=== PATIENT | male | born 1960 | race Caucasian/White ===

== ENCOUNTER 2021-03-28 20:54 | Inpatient (IN) | payer MEDICARE, OTHER ==
[~2021-03-28] VITALS: Ht 182.9 cm; Wt 88.5 kg
[2021-03-28] MEDS ORDERED: PHENERGAN 25 MG25 M1 PO (22:55)
[2021-03-28] MEDS ORDERED: ZYPREXA2.5 MG PO (22:55)
[2021-03-28] MEDS ORDERED: FISH OIL 1,0001 EACH PO (22:56)
[2021-03-29 04:54] LABS: BUN/CREATININE RATIO 29 (0-10)
[2021-03-30 02:47] LABS: HEMOGLOBIN 13.1 gm/dl (14.0-17.5); RED BLOOD COUNT 4.32 M/UL (4.20-5.50); WHITE BLOOD COUNT 10.1 K/UL (4.5-11.0)
[2021-03-30 03:28] LABS: BUN/CREATININE RATIO 39 (0-10)
[2021-03-31 02:29] LABS: HEMOGLOBIN 13.4 gm/dl (14.0-17.5); RED BLOOD COUNT 4.48 M/UL (4.20-5.50)
[2021-03-31 02:33] LABS: WHITE BLOOD COUNT 14.1 K/UL (4.5-11.0)
[2021-03-31 02:58] LABS: BUN/CREATININE RATIO 40 (0-10)
[2021-04-01 02:45] LABS: HEMOGLOBIN 12.7 gm/dl (14.0-17.5); RED BLOOD COUNT 4.23 M/UL (4.20-5.50); WHITE BLOOD COUNT 13.8 K/UL (4.5-11.0)
[2021-04-01 03:05] LABS: BUN/CREATININE RATIO 37 (0-10)
--- NOTE | 2021-04-01 22:34 | NUR ---
[address] ROMERO DT O2 SAT 84% ON 100% BIPAP. ABG ORDERED. SEE MAR FOR ORDERS. 1904 DR ROMERO NOTIFIED OF PT AGITATION. UNABLE TO START PRECEDEX BACK DT HR IN THE 40S. PT O2 SAT 80%. ORDERS RECEIVED TO SET UP FOR INTUBATION. 1942 PT INTUBATED 8 @ 24. + COLOR CHANGE, BILATERAL BREATH SOUNDS. RIJ CVL PLACED EMERGENTLY BY DR ROMERO. OG PLACED BY RN. XRAY CALLED TO BEDSIDE FOR STAT PORTABLE. [address] ROMERO PT PRONED. SEE MAR FOR ORDERS. 1999 PT FAMILY UPDATED BY HEATHER.
--- NOTE | 2021-04-02 00:27 | NUR ---
PER PT REQUEST, [facility] SENT TO [facility].
[2021-04-02 05:46] LABS: HEMOGLOBIN 14.5 gm/dl (14.0-17.5)
[2021-04-02 05:52] LABS: RED BLOOD COUNT 4.98 M/UL (4.20-5.50); WHITE BLOOD COUNT 19.2 K/UL (4.5-11.0)
[2021-04-02 06:42] LABS: BUN/CREATININE RATIO 49 (0-10)
--- NOTE | 2021-04-02 15:22 | NUR ---
AT [address] PULLIAM ABOUT PATIENT TACHYCARDIA. STATED TO NOTIFIY HIM IN 30 MINUTES TO 1 HOUR IF TACHYCARDIA DID NOT IMPROVE FOR NEW ORDERS.
[2021-04-03 05:33] LABS: HEMOGLOBIN 14.3 gm/dl (14.0-17.5); RED BLOOD COUNT 4.68 M/UL (4.20-5.50)
[2021-04-03 05:34] LABS: WHITE BLOOD COUNT 13.5 K/UL (4.5-11.0)
[2021-04-03 05:46] LABS: BUN/CREATININE RATIO 48 (0-10)
[2021-04-03 16:44] LABS: BUN/CREATININE RATIO 46 (0-10)
--- NOTE | 2021-04-03 16:54 | NUR ---
Spoke with Dr. Rajan and notified that radiology reported a 20-30% left pneumothorax. Dr. Rajan came to bedside and adjusted vent settings to FIO2 50% and PEEP 10. Stated to order chest xray in AM.
--- NOTE | 2021-04-04 04:23 | NUR ---
PATIENT O2 SATURATION 88% PATIENT IS BREATHING OVER VENT, INCREASE IN FENTAYL FOR SEDATION
[2021-04-04 04:33] LABS: HEMOGLOBIN 13.7 gm/dl (14.0-17.5); RED BLOOD COUNT 4.47 M/UL (4.20-5.50); WHITE BLOOD COUNT 15.3 K/UL (4.5-11.0)
[2021-04-04 04:48] LABS: BUN/CREATININE RATIO 47 (0-10)
[2021-04-05 05:29] LABS: HEMOGLOBIN 13.5 gm/dl (14.0-17.5); RED BLOOD COUNT 4.34 M/UL (4.20-5.50); WHITE BLOOD COUNT 14.1 K/UL (4.5-11.0)
[2021-04-05 05:52] LABS: BUN/CREATININE RATIO 54 (0-10)
[2021-04-06 05:53] LABS: HEMOGLOBIN 12.2 gm/dl (14.0-17.5); RED BLOOD COUNT 4.04 M/UL (4.20-5.50); WHITE BLOOD COUNT 17.3 K/UL (4.5-11.0)
[2021-04-06 06:37] LABS: BUN/CREATININE RATIO 57 (0-10)
[2021-04-07 05:45] LABS: RED BLOOD COUNT 4.02 M/UL (4.20-5.50); WHITE BLOOD COUNT 18.1 K/UL (4.5-11.0)
[2021-04-07 06:09] LABS: BUN/CREATININE RATIO 70 (0-10)
[2021-04-08 05:22] LABS: BUN/CREATININE RATIO 62 (0-10); HEMOGLOBIN 11.9 gm/dl (14.0-17.5); RED BLOOD COUNT 3.91 M/UL (4.20-5.50); WHITE BLOOD COUNT 18.1 K/UL (4.5-11.0)
[2021-04-09 05:53] LABS: HEMOGLOBIN 11.2 gm/dl (14.0-17.5); RED BLOOD COUNT 3.68 M/UL (4.20-5.50); WHITE BLOOD COUNT 19.7 K/UL (4.5-11.0)
[2021-04-09 06:05] LABS: BUN/CREATININE RATIO 69 (0-10)
[2021-04-10 07:00] LABS: BUN/CREATININE RATIO 57 (0-10)
[2021-04-10 13:34] LABS: HEMOGLOBIN 11.2 gm/dl (14.0-17.5); RED BLOOD COUNT 3.69 M/UL (4.20-5.50); WHITE BLOOD COUNT 17.9 K/UL (4.5-11.0)
[2021-04-11 07:30] LABS: HEMOGLOBIN 9.6 gm/dl (14.0-17.5); WHITE BLOOD COUNT 14.4 K/UL (4.5-11.0)
[2021-04-11 07:32] LABS: RED BLOOD COUNT 3.26 M/UL (4.20-5.50)
[2021-04-11 10:29] LABS: BUN/CREATININE RATIO 52 (0-10)
[2021-04-12 04:50] LABS: HEMOGLOBIN 10.5 gm/dl (14.0-17.5); RED BLOOD COUNT 3.45 M/UL (4.20-5.50); WHITE BLOOD COUNT 16.9 K/UL (4.5-11.0)
[2021-04-12 05:05] LABS: BUN/CREATININE RATIO 51 (0-10)
[2021-04-12 17:08] LABS: HEPARIN INDUCED PLATELET AB 0.172 OD (0.000-0.400)
[2021-04-13 05:35] LABS: HEMOGLOBIN 11.3 gm/dl (14.0-17.5); RED BLOOD COUNT 3.74 M/UL (4.20-5.50); WHITE BLOOD COUNT 16.1 K/UL (4.5-11.0)
[2021-04-13 05:58] LABS: BUN/CREATININE RATIO 46 (0-10)
[2021-04-14 05:25] LABS: HEMOGLOBIN 8.7 gm/dl (14.0-17.5); RED BLOOD COUNT 2.92 M/UL (4.20-5.50); WHITE BLOOD COUNT 10.3 K/UL (4.5-11.0)
[2021-04-14 05:55] LABS: BUN/CREATININE RATIO 46 (0-10)
[2021-04-14 11:15] LABS: ACINETOBACTER BAUMANNII Not Detected (Negative); CANDIDA KRUSEI Not Detected (Negative); CANDIDA TROPICALIS Not Detected (Negative); ENTEROCOCCUS Not Detected (Negative); ESCHERICHIA COLI Not Detected (Negative); HAEMOPHILUS INFLUENZAE Not Detected (Negative); KLEBSIELLA OXYTOCA Not Detected (Negative); KLEBSIELLA PNEUMONIAE Not Detected (Negative); KPC-CARBAPENEM-RESISTANCE GENE Not Detected (Negative); PROTEUS Not Detected (Negative); PSEUDOMONAS AERUGINOSA Not Detected (Negative); SERRATIA MARCESANS Not Detected (Negative); STAPHYLOCOCCUS Not Detected (Negative); STAPHYLOCOCCUS AUREUS Not Detected (Negative); STREP AGALACTIAE (GROUP B) Not Detected (Negative); STREP PYOGENES (GROUP A) Not Detected (Negative); STREPTOCOCCUS Not Detected (Negative); mecA (METHICILLIN RESIST GENE Not Detected (Negative); vanA/B (VANCOMYCIN RESIST GENE Not Detected (Negative)
[2021-04-14 13:16] LABS: CANDIDA ALBICANS DETECTED (Negative)
[2021-04-14 18:55] LABS: HEMOGLOBIN 10.4 gm/dl (14.0-17.5); WHITE BLOOD COUNT 12.7 K/UL (4.5-11.0)
[2021-04-14 18:57] LABS: RED BLOOD COUNT 3.45 M/UL (4.20-5.50)
[2021-04-15 08:18] LABS: HEMOGLOBIN 9.7 gm/dl (14.0-17.5); RED BLOOD COUNT 3.3 M/UL (4.20-5.50); WHITE BLOOD COUNT 13.4 K/UL (4.5-11.0)
[2021-04-15 08:44] LABS: BUN/CREATININE RATIO 50 (0-10)
[2021-04-16 05:06] LABS: HEMOGLOBIN 9.8 gm/dl (14.0-17.5); RED BLOOD COUNT 3.22 M/UL (4.20-5.50); WHITE BLOOD COUNT 13.5 K/UL (4.5-11.0)
[2021-04-16 05:25] LABS: BUN/CREATININE RATIO 54 (0-10)
[2021-04-17 05:13] LABS: HEMOGLOBIN 10.1 gm/dl (14.0-17.5); RED BLOOD COUNT 3.35 M/UL (4.20-5.50)
[2021-04-17 05:34] LABS: BUN/CREATININE RATIO 53 (0-10)
[2021-04-18 04:52] LABS: HEMOGLOBIN 10.3 gm/dl (14.0-17.5); RED BLOOD COUNT 3.44 M/UL (4.20-5.50); WHITE BLOOD COUNT 9.4 K/UL (4.5-11.0)
[2021-04-18 05:35] LABS: BUN/CREATININE RATIO 63 (0-10)
[2021-04-19 05:27] LABS: HEMOGLOBIN 9.4 gm/dl (14.0-17.5); RED BLOOD COUNT 3.15 M/UL (4.20-5.50); WHITE BLOOD COUNT 10.1 K/UL (4.5-11.0)
[2021-04-19 05:53] LABS: BUN/CREATININE RATIO 50 (0-10)
[2021-04-20 05:38] LABS: HEMOGLOBIN 9.2 gm/dl (14.0-17.5); RED BLOOD COUNT 3.09 M/UL (4.20-5.50); WHITE BLOOD COUNT 8.1 K/UL (4.5-11.0)
[2021-04-20 06:06] LABS: BUN/CREATININE RATIO 53 (0-10)
[2021-04-21 06:20] LABS: BUN/CREATININE RATIO 41 (0-10)
[2021-04-21 07:10] LABS: HEMOGLOBIN 10.6 gm/dl (14.0-17.5); RED BLOOD COUNT 3.55 M/UL (4.20-5.50); WHITE BLOOD COUNT 8.9 K/UL (4.5-11.0)
[2021-04-22 05:42] LABS: HEMOGLOBIN 10.2 gm/dl (14.0-17.5); RED BLOOD COUNT 3.48 M/UL (4.20-5.50)
[2021-04-22 05:54] LABS: WHITE BLOOD COUNT 11.3 K/UL (4.5-11.0)
[2021-04-22 05:56] LABS: BUN/CREATININE RATIO 26 (0-10)
[2021-04-24 09:27] LABS: HEMOGLOBIN 9.4 gm/dl (14.0-17.5); RED BLOOD COUNT 3.18 M/UL (4.20-5.50); WHITE BLOOD COUNT 7.4 K/UL (4.5-11.0)
[2021-04-24 09:35] LABS: BUN/CREATININE RATIO 31 (0-10)
--- NOTE | 2021-04-24 22:25 | NUR ---
PATIENT DESAT, RT CALLED, FAMILY EDUCATED ON OVER STIMULATION, FAMILY CONTINUES TO TALK TO AND TOUCH PATIENT, PATIENT BLOOD PRESSURE AND RESPIRATIONS CONTINUE TO ELEVATE, TITRATED SEDATION
--- NOTE | 2021-04-25 03:18 | NUR ---
LATE ENTRY 2213 LARGE LOOSE/RUNNY BOWEL MOVEMENT BROWN IN COLOR
[2021-04-25 05:13] LABS: HEMOGLOBIN 11.4 gm/dl (14.0-17.5); RED BLOOD COUNT 3.89 M/UL (4.20-5.50); WHITE BLOOD COUNT 15.9 K/UL (4.5-11.0)
[2021-04-25 05:34] LABS: BUN/CREATININE RATIO 36 (0-10)
[2021-04-26 05:07] LABS: HEMOGLOBIN 8.5 gm/dl (14.0-17.5); RED BLOOD COUNT 2.94 M/UL (4.20-5.50); WHITE BLOOD COUNT 6.7 K/UL (4.5-11.0)
[2021-04-26 05:36] LABS: BUN/CREATININE RATIO 45 (0-10)
[2021-04-27 05:13] LABS: HEMOGLOBIN 9.4 gm/dl (14.0-17.5); WHITE BLOOD COUNT 6.9 K/UL (4.5-11.0)
[2021-04-27 05:16] LABS: RED BLOOD COUNT 3.24 M/UL (4.20-5.50)
[2021-04-27 05:37] LABS: BUN/CREATININE RATIO 41 (0-10)
[2021-04-28 06:01] LABS: BUN/CREATININE RATIO 47 (0-10)
[2021-04-28 06:37] LABS: HEMOGLOBIN 9.1 gm/dl (14.0-17.5); RED BLOOD COUNT 3.2 M/UL (4.20-5.50)
[2021-04-28 06:38] LABS: WHITE BLOOD COUNT 9.5 K/UL (4.5-11.0)
[2021-04-29 05:36] LABS: ACINETOBACTER BAUMANNII Not Detected (Negative); CANDIDA ALBICANS Not Detected (Negative); CANDIDA KRUSEI Not Detected (Negative); CANDIDA TROPICALIS Not Detected (Negative); ENTEROCOCCUS Not Detected (Negative); ESCHERICHIA COLI Not Detected (Negative); HAEMOPHILUS INFLUENZAE Not Detected (Negative); KLEBSIELLA OXYTOCA Not Detected (Negative); KLEBSIELLA PNEUMONIAE Not Detected (Negative); KPC-CARBAPENEM-RESISTANCE GENE Not Detected (Negative); PROTEUS Not Detected (Negative); PSEUDOMONAS AERUGINOSA Not Detected (Negative); SERRATIA MARCESANS Not Detected (Negative); STAPHYLOCOCCUS AUREUS Not Detected (Negative); STREP AGALACTIAE (GROUP B) Not Detected (Negative); STREP PYOGENES (GROUP A) Not Detected (Negative); STREPTOCOCCUS Not Detected (Negative); vanA/B (VANCOMYCIN RESIST GENE Not Detected (Negative)
[2021-04-29 06:25] LABS: BUN/CREATININE RATIO 51 (0-10)
[2021-04-29 06:53] LABS: STAPHYLOCOCCUS DETECTED (Negative); mecA (METHICILLIN RESIST GENE DETECTED (Negative)
[2021-04-29 10:07] LABS: HEMOGLOBIN 10.2 gm/dl (14.0-17.5); WHITE BLOOD COUNT 9.9 K/UL (4.5-11.0)
[2021-04-29 10:10] LABS: RED BLOOD COUNT 3.56 M/UL (4.20-5.50)
[2021-04-30 05:43] LABS: BUN/CREATININE RATIO 57 (0-10)
[2021-05-01 05:20] LABS: HEMOGLOBIN 8.2 gm/dl (14.0-17.5); RED BLOOD COUNT 2.82 M/UL (4.20-5.50); WHITE BLOOD COUNT 7.4 K/UL (4.5-11.0)
[2021-05-01 05:54] LABS: BUN/CREATININE RATIO 63 (0-10)
[2021-05-02 09:49] LABS: HEMOGLOBIN 8.5 gm/dl (14.0-17.5); RED BLOOD COUNT 2.97 M/UL (4.20-5.50); WHITE BLOOD COUNT 6.3 K/UL (4.5-11.0)
[2021-05-02 10:08] LABS: BUN/CREATININE RATIO 46 (0-10)
[2021-05-05 10:55] LABS: HEMOGLOBIN 8.1 gm/dl (14.0-17.5); RED BLOOD COUNT 2.83 M/UL (4.20-5.50); WHITE BLOOD COUNT 12.9 K/UL (4.5-11.0)
[2021-05-05 11:13] LABS: BUN/CREATININE RATIO 43 (0-10)
[2021-05-05] MEDS ORDERED: GUAIFENESI100 MG/5 M PO (14:05)
[2021-05-05] MEDS ORDERED: VITAMIN B-1100 M1 PO (14:05)
[2021-05-05] MEDS ORDERED: NYSTOP60 GM TOP (14:05)
[2021-05-05] MEDS ORDERED: LISINOPRIL40 MG PO (14:13)
[2021-05-05] MEDS ORDERED: IPRAT-ALBUT 0.5-3 ML NEB (14:13)
[2021-05-05] MEDS ORDERED: BUDESONIDE0.5 MG/2 M NEB (14:13)
[2021-05-05] MEDS ORDERED: FENTANYL1 EACH TOP (14:13)
[2021-05-05] MEDS ORDERED: LOPRESSOR 25 MG25 MG NG (14:13)
[2021-05-05] MEDS ORDERED: HYDROCODON-ACET15 ML PO (14:13)
[2021-05-05] MEDS ORDERED: MEROPENEM500 MG IV (14:27)
[2021-05-05] MEDS ORDERED: ZYVOX IV 6600 MG/300 INJ (14:27)
[2021-05-05] MEDS ORDERED: ATIVAN0.5 MG PO (14:27)
== END 2021-05-05 19:25 | DRG 4 ==
LOC: PROG CARE 03-29 02:47 → CCU 03-29 02:47
PROVIDERS: Emergency Medicine; Internal Medicine; Internal Medicine Critical Care Medicine; Internal Medicine Infectious Disease; Internal Medicine Pulmonary Disease; Student in an Organized Health Care Education/Training Program; ADMIT Internal Medicine
PROC: XW033E5 Introduction of Remdesivir Anti-infective into Peripheral Vein, Percutaneous Approach, New Technology Group 5 (ICD-10-PCS; principal; 2021-03-29)
PROC: 8E0ZXY6 Isolation (ICD-10-PCS; 2021-03-29)
PROC: 3E0333Z Introduction of Anti-inflammatory into Peripheral Vein, Percutaneous Approach (ICD-10-PCS; 2021-03-29)
PROC: 5A1955Z Respiratory Ventilation, Greater than 96 Consecutive Hours (ICD-10-PCS; 2021-04-01)
PROC: 0BH17EZ Insertion of Endotracheal Airway into Trachea, Via Natural or Artificial Opening (ICD-10-PCS; 2021-04-01)
PROC: 05HN33Z Insertion of Infusion Device into Left Internal Jugular Vein, Percutaneous Approach (ICD-10-PCS; 2021-04-01)
PROC: 0W9B30Z Drainage of Left Pleural Cavity with Drainage Device, Percutaneous Approach (ICD-10-PCS; 2021-04-04)
PROC: 3E033XZ Introduction of Vasopressor into Peripheral Vein, Percutaneous Approach (ICD-10-PCS; 2021-04-12)
PROC: 0B113F4 Bypass Trachea to Cutaneous with Tracheostomy Device, Percutaneous Approach (ICD-10-PCS; 2021-04-21)
PROC: 0DH63UZ Insertion of Feeding Device into Stomach, Percutaneous Approach (ICD-10-PCS; 2021-04-21)
PROC: B24BZZZ Ultrasonography of Heart with Aorta (ICD-10-PCS; 2021-04-28)
PROC: 0W9B30Z Drainage of Left Pleural Cavity with Drainage Device, Percutaneous Approach (ICD-10-PCS; 2021-04-30)
PROC: 0W9B30Z Drainage of Left Pleural Cavity with Drainage Device, Percutaneous Approach (ICD-10-PCS; 2021-04-30)
DX: U07.1 COVID-19 (principal); J12.82 Pneumonia due to coronavirus disease 2019; J15.9 Unspecified bacterial pneumonia; J80 Acute respiratory distress syndrome; A41.9 Sepsis, unspecified organism; R65.21 Severe sepsis with septic shock; G93.41 Metabolic encephalopathy; E87.0 Hyperosmolality and hypernatremia; J93.83 Other pneumothorax; B49 Unspecified mycosis; B37.89 Other sites of candidiasis; N30.00 Acute cystitis without hematuria; Z16.21 Resistance to vancomycin; B95.2 Enterococcus as the cause of diseases classified elsewhere; G24.01 Drug induced subacute dyskinesia; T70.29XA Other effects of high altitude, initial encounter; D50.0 Iron deficiency anemia secondary to blood loss (chronic); D69.6 Thrombocytopenia, unspecified; E11.649 Type 2 diabetes mellitus with hypoglycemia without coma; F31.9 Bipolar disorder, unspecified; J98.2 Interstitial emphysema; F41.9 Anxiety disorder, unspecified; E11.65 Type 2 diabetes mellitus with hyperglycemia; E11.22 Type 2 diabetes mellitus with diabetic chronic kidney disease; N18.30 Chronic kidney disease, stage 3 unspecified; E87.5 Hyperkalemia; M19.90 Unspecified osteoarthritis, unspecified site; Z79.4 Long term (current) use of insulin; Z79.899 Other long term (current) drug therapy
CPT/HCPCS: ECHO; 31500; 36415; 36600; 71045; 71275; 80048; 80053; 80202; 81001; 82533; 82550; 82553; 82803; 82962; 83036; 83605; 83615; 83735; 83880; 84100; 84439; 84443; 84484; 85025; 85027; 85384; 85610; 85730; 86140; 87040; 87070; 87077; 87081; 87086; 87150; 87186; 87205; 93005; 93306; 93970; 94002; 94003; 94640; 94660; 94664; 94760; 97162; A6212; A6243; C1729; C1769; C9113; J0360; J0692; J1100; J1160; J1650; J1940; J1956; J2020; J2060; J2185; J2248; J2250; J2370; J2704; J2765; J3010; J3370; J7030; J7040; J7050; J7070; J7120; P9047; Q9967